=== PATIENT | male | born 1965 | race Caucasian/White ===

== ENCOUNTER 2016-06-03 10:15 | Observation (INO) ==
[2016-06-03] MEDS ORDERED: ASPIRIN CHEWABLE PO STA (10:30)
[2016-06-03] MEDS ORDERED: ZOFRAN 4 MG/2 ML IVP STA (10:55)
[2016-06-03] MEDS ORDERED: MORPHINE 4 MG/ML SYRINGE IVP STA (10:55)
[2016-06-03 11:04] LABS: BASOPHILS % (AUTO) 0.5 % (0.0-3.0); EOSINOPHILS # (AUTO) 0.1 K/ul (0.0-0.7); EOSINOPHILS % (AUTO) 2.3 % (0.0-7.0); HEMATOCRIT 46.3 % (42.0-52.0); HEMOGLOBIN 15.5 g/dl (14.0-18.0); IMMATURE GRANULOCYTE % (AUTO) 0.3 % (0.0-5.0); LYMPHOCYTES # (AUTO) 1.3 K/uL (0.60-3.4); LYMPHOCYTES % (AUTO) 20.5 (10.0-50.0); MEAN CORPUSCULAR HGB CONC 33.5 (31.8-35.4); MEAN CORPUSCULAR VOLUME 89.6 fl (80.0-94.0); MONOCYTES # (AUTO) 0.5 K/uL (0.4-2.0); MONOCYTES % (AUTO) 7.7 (0-10); NEUTROPHILS # (AUTO) 4.2 K/ul (2.0-6.9); NEUTROPHILS % (AUTO) 68.7; PLATELET COUNT 249 10^3/uL (140-440); RED BLOOD COUNT 5.17 10^6/ul (4.70-6.10); WHITE BLOOD COUNT 6.09 K/ul (4.2-10.2)
[2016-06-03 11:21] LABS: PARTIAL THROMBOPLASTIN TIME 23.9 SEC (23.9-40.0); PROTHROMBIN TIME 10.4 SEC (9.3-11.0)
[2016-06-03 11:25] LABS: BILIRUBIN,URINE Negative (NEGATIVE); KETONES,URINE Negative (NEGATIVE); LEUKOCYTE ESTERASE ,URINE Negative (NEGATIVE); NITRITE,URINE Negative (NEGATIVE); PH,URINE 6.5 (5-9); PROTEIN,URINE Negative (NEGATIVE); URINE, BLOOD Trace-intact (NEGATIVE)
[2016-06-03 11:28] LABS: ADD URINE MICROSCOPIC YES
[2016-06-03 11:51] LABS: ALANINE AMINOTRANSFERASE 42 U/L (12-78); ALBUMIN 4.2 g/dL (3.4-5.0); ALKALINE PHOSPHATASE 70 U/L (50-136); ANION GAP 11.7; ASPARTATE AMINO TRANSFERASE 24 U/L (15-37); BILIRUBIN,TOTAL 0.32 mg/dL (0.00-1.20); BLOOD UREA NITROGEN 18 mg/dL (7-18); CALCIUM 8.9 mg/dL (8.2-10.2); CARBON DIOXIDE 22 mmol/L (21-32); CHLORIDE 114 mmol/L (98-107); CREATINE KINASE 125 U/L; CREATININE 1.04 mg/dL (0.60-1.10); GLUCOSE 81 mg/dL (70-100); POTASSIUM 3.7 mmol/L (3.5-5.1); SODIUM 144 mmol/L (136-145)
[2016-06-03 11:52] LABS: CREATINE KINASE MB 2.6 ng/ml (0.0-3.6)
--- NOTE | 2016-06-03 11:54 | DI ---
EXAM: Chest one view, frontal view only. HISTORY: Chest pain. COMPARISON: 04/05/2014. FINDINGS: The heart size is normal. There is no pulmonary vascular congestion. The lungs are tiffani r. No pleural effusion or pneumothorax is seen. No acute osseous abnormality is identified. Since the prior study, there has been no significant interval change. IMPRESSION: No acute cardiopulmonary process.
--- NOTE | 2016-06-03 12:07 | ED.PDOC ---
General ED Provider: Dr. QUIN PATEL Chief Complaint: Chest Pain Stated Complaint: chest pain Time Seen by Physician: 10:20 (after an rgument he developed chest pain) Mode of Arrival: Walk-In Information Source: Patient Exam Limitations: No limitations Primary Care Provider: HERBERT READ Nursing and Triage Documentation Reviewed and Agree: Yes Cardiovascular Complaint Exam - Chest Pain Complaint/Exam Onset: Sudden Duration: 20 min Symptoms Are: Resolved Timing: Intermittent Initial Severity: Mild Current Severity: Mild Location: Reports: Midsternal Pain Radiates: Reports: None Character: Reports: Squeezing Aggravating: Reports: None Alleviating: Reports: None Associated Signs and Symptoms: Denies: Diaphoresis, Nausea, Vomiting, Fever, Palpitations, Cough, Hemoptysis, Back pain, Abdominal pain, Dizziness, Short of air, Calf pain, Calf swelling Related Surgical History: Reports: None History of Healthcare-Acquired Pneumonia: Reports: No AMI/ACS Risk Factors: Reports: Hypertension TAD Risk Factors: Reports: Hypertension Pulmonary Embolism Risk Factors: Reports: None Prior Care for this Complaint: No Recent Stress Test: No Recent Echo/LV Function: No JVD Present: No Subcutaneous Emphysema Present: No Diminshed Breath Sounds: No Reproducible Chest Wall Pain: No Bilateral Pulses Present: No Unequal Pulses Noted: No If Risk Factors for AMI/ACS Consider: EKG, Cardiac Enzymes Review of Systems - Review Of Systems Constitutional: Reports: No symptoms Eyes: Reports: No symptoms Ears, Nose, Mouth, Throat: Reports: No symptoms Respiratory: Reports: No symptoms Cardiac: Reports: Chest pain GI: Reports: No symptoms : Reports: No symptoms Musculoskeletal: Reports: No symptoms Skin: Reports: No symptoms Neurological: Reports: No symptoms Endocrine: Reports: No symptoms Hematologic/Lymphatic: Reports: No symptoms All Other Systems: Reviewed and Negative Past Medical History - Past Medical History Previously Healthy: No Endocrine: Reports: None Cardiovascular: Reports: Hypertension Respiratory: Reports: None Hematological: Reports: None Gastrointestinal: Reports: GERD Genitourinary: Reports: None Neuro/Psych: Reports: None Musculoskeletal: Reports: None Cancer: Reports: None - Surgical History General Surgical History: Reports: Unknown - Family History Family History: Reports: Unknown - Social History Smoking Status: Former smoker Hx Substance Use: No Alcohol Screening: None - Immunizations Tetanus Shot up to Date: No Physical Exam - Physical Exam Appearance: Well-appearing, No pain distress, Well-nourished Eyes: ARIES, EOMI, Conjunctiva clear ENT: Ears normal, Nose normal, Oropharynx normal Respiratory: Airway patent, Breath sounds clear, Breath sounds equal, Respirations nonlabored Cardiovascular: RRR, Pulses normal, No rub, No murmur GI/: Soft, Nontender, No masses, Bowel sounds normal, No Organomegaly Musculoskeletal: Normal strength, ROM intact, No edema, No calf tenderness Skin: Warm, Dry, Normal color Neurological: Sensation intact, Motor intact, Reflexes intact, Cranial nerves intact, Alert, Oriented Psychiatric: Affect appropriate, Mood appropriate 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 % (Auto) 7.7 Eos % (Auto) 2.3 Baso % (Auto) 0.5 Immature Gran # (Auto) 0.0 Neut # 4.2 Lymph # 1.3 [place] # 0.5 Eos # 0.1 Baso # 0.0 PT 10.4 INR 1.01 APTT 23.9 Sodium 144 Potassium 3.7 Chloride 114 H Carbon Dioxide 22 Anion Gap 11.7 BUN 18 Creatinine 1.04 Estimated GFR (MDRD) 75.00 BUN/Creatinine Ratio 17.30 Glucose 81 Calcium 8.9 Total Bilirubin 0.32 AST 24 ALT 42 Alkaline Phosphatase 70 Total Creatine Kinase 125 CK-MB (CK-2) 2.6 CK-MB (CK-2) % 2.12584 Troponin I < 0.0100 Total Protein 7.0 Albumin 4.2 Globulin 2.8 Albumin/Globulin Ratio 1.50 Urine Color Yellow Urine Clarity Clear Urine pH 6.5 Ur Specific [place] <=1.005 Urine Protein Negative Urine Glucose (UA) Negative Urine Ketones Negative Urine Blood Trace-intact Urine Nitrite Negative Urine Bilirubin Negative Urine Urobilinogen 0.2 Ur Leukocyte Esterase Negative Urine Microscopic RBC 0-2 Ur Squamous Epith Cells Not present Orders Category Date Time Status EKG-(ED ONLY) Stat CARDIO 06/03/16 10:30 Completed ED IV/MEDIPORT/POWERPORT .ONCE EMERGENCY 06/03/16 10:29 Active CBC W/ AUTO DIFF Stat LAB 06/03/16 10:37 Completed COMPREHENSIVE METABOLIC PANEL Stat LAB 06/03/16 10:37 Completed CREATINE KINASE Stat LAB 06/03/16 10:37 Completed PARTIAL THROMBOPLASTIN TIME Stat LAB 06/03/16 10:37 Completed PT WITH INR Stat LAB 06/03/16 10:37 Completed TROPONIN I Stat LAB 06/03/16 10:37 Completed URINALYSIS C & S IF INDICATED Stat LAB 06/03/16 11:20 Completed 0.9 % Sodium Chloride [Saline Flush] MEDS 06/03/16 10:30 Active 1 syr IVF PRN PRN Aspirin [Aspirin Chewable] MEDS 06/03/16 10:30 Discontinued 324 mg PO ONCE STA Morphine Sulfate [Morphine 4 mg/ml Syringe] MEDS 06/03/16 10:55 Discontinued 2 mg IVP ONCE STA Ondansetron HCl/Pf [Zofran 4 mg/2 ml] MEDS 06/03/16 10:55 Discontinued 4 mg IVP ONCE STA CHEST, 1V AP ONLY Stat RADS 06/03/16 10:29 Completed Medications Generic Name Dose Route Start Last Admin Trade Name Freq PRN Reason Stop Dose Admin Sodium Chloride 1 syr 06/03/16 10:30 06/03/16 10:45 Saline Flush IVF 1 syr PRN PRN Administration To flush IV Discontinued Medications Generic Name Dose Route Start Last Admin Trade Name Freq PRN Reason Stop Dose Admin Aspirin 324 mg 06/03/16 10:30 06/03/16 10:43 Aspirin Chewable PO 06/03/16 10:31 324 mg ONCE STA Administration Morphine Sulfate 2 mg 06/03/16 10:55 06/03/16 11:09 Morphine 4 Mg/Ml Syringe IVP 06/03/16 10:56 2 mg ONCE STA Administration Ondansetron HCl 4 mg 06/03/16 10:55 06/03/16 11:07 Zofran 4 Mg/2 Ml IVP 06/03/16 10:56 4 mg ONCE STA Administration Vital Signs: Temp Pulse Resp BP Pulse Ox 06/03/16 10:16 97.8 F 80 16 153/103 H 99 MARGIE Risk Score MARGIE Risk Score: Risk Score Odds of by 30D 0 0.1 (0.1-0.2) 1 0.3 (0.2-0.3) 2 0.4 (0.3-0.5) 3 0.7 (0.6-0.9) 4 1.2 (1.0-1.5) 5 2.2 (1.9-2.6) 6 3.0 (2.5-3.6) 7 4.8 (3.8-6.1) Departure - Departure Time of Disposition: 12:09 Disposition: HOME SELF-CARE Discharge Problem: Chest pain Instructions: Angina (ED) Condition: Good Pt referred to PMD for follow-up: Yes (admitt) Allergies/Adverse Reactions: Allergies No Known Allergies Allergy (Verified 06/03/16 10:27) Home Medications: Ambulatory Orders Amlodipine Besylate/Benazepril [Lotrel 10-20 mg Capsule] 1 each PO DAILY Atorvastatin Calcium [Lipitor] 40 mg PO DAILY 04/05/14 B12/Levomefolate Calcium/B-6 [Eaweixprow-Urjzfoo-Kmvbqhra Tb] 1 each PO DAILY Diclofenac Epolamine [Flector] 1 each TD DIRECTED PRN 04/05/14 Guanfacine HCl [Tenex] 2 mg PO BID 04/05/14 Hydrocodone/Acetaminophen [Lortab 5-325 mg Tablet] 1 each PO BID PRN 04/05/14 Ramelteon [Rozerem] 8 mg PO BEDTIME 04/05/14 Testosterone [Axiron] 2 sprays TD DIRECTED 04/05/14 Tizanidine HCl [Zanaflex] 12 mg PO BEDTIME 04/05/14 Topiramate [Topamax] 50 mg PO TID 04/05/14 Zolpidem Tartrate [Ambien] 10 mg PO DIRECTED PRN 04/05/14 Celecoxib [Celebrex] 200 mg PO BID PRN 04/06/14 Esomeprazole Magnesium [Nexium] 40 mg PO DAILY 05/16/14 Disposition Discussed With: Patient
[2016-06-03] MEDS ORDERED: TORADOL IVP STA ×2 (12:37→21:05)
[2016-06-03] MEDS ORDERED: PROTONIX IV IVP STA (12:38)
[2016-06-03] MEDS ORDERED: DECADRON 4 MG/ML SDV IM STA (12:39)
[2016-06-03 13:41] VITALS: BMI 35.9
[2016-06-03] MEDS: SODIUM CHLORIDE 1,000 ML IV SCH (13:43)
--- NOTE | 2016-06-03 14:54 | US ---
Examination: Alatorre-scale and color Doppler ultrasonographic evaluation of the bilateral carotid candida soraya. Comparison: None available. Reason for study: Lightheadedness. FINDINGS: Right side: There is a small amount of heterogeneous plaque seen in the common carotid artery. The right common carotid artery measures 100 / 20 cm/sec. The right external carotid artery measures 60 / 20 cm/sec. The right internal carotid artery peak systolic velocity measures 80 cm/sec. The right internal carotid artery/CCA PSV ratio is 0.8. The right internal carotid artery end-diastolic velocity measures 20 cm/sec. There is normal antegrade right vertebral artery flow. Left side: There is a small amount of heterogeneous plaque seen in the common carotid and within the bulb of th e internal left carotid artery. The left common carotid artery measures 90 / 30 cm/sec. The left external carotid artery measures 90 / 20 cm/sec. The left internal carotid artery peak systolic velocity measures 60 cm/sec. The left internal carotid artery/CCA PSV ratio measures 0.7. The left internal carotid artery end-diastolic velocity measures 20 cm/sec. There is normal antegrade left vertebral artery flow. Impression: There is no evidence of ultrasonographically significant stenosis seen in either of the internal carotid arteries.
[2016-06-03] MEDS ORDERED: NITROSTAT SL PRN (14:55)
[2016-06-03] MEDS ORDERED: NON-FORMULARY MEDICATION (Celecoxib [Celebrex] 200 MG) PO PRN ×22 (15:11)
[2016-06-03] MEDS ORDERED: DICLOFENAC EPOLAMINE TD PRN (15:11)
[2016-06-03] MEDS ORDERED: GI COCKTAIL PO STA (15:15)
[2016-06-03] MEDS ORDERED: TESTOSTERONE TD SCH (15:15)
[2016-06-03] MEDS: LOVENOX SUBCUT SCH ×2 (15:35→21:03)
[2016-06-03 18:55] LABS: CREATINE KINASE 103 U/L
[2016-06-03] MEDS ORDERED: GUANFACINE HCL 4 MG PO SCH (21:00)
[2016-06-03] MEDS ORDERED: NON-FORMULARY MEDICATION (Topiramate [Topamax] 100 MG) PO SCH (21:00)
[2016-06-03] MEDS: ZANAFLEX PO SCH (21:04)
[2016-06-03] MEDS: NORCO 5-325 PO SCH (21:04)
[2016-06-03] MEDS: TOPAMAX PO SCH (21:04)
[2016-06-03] MEDS ORDERED: XANAX PO STA (21:05)
[2016-06-04 02:12] LABS: BASOPHILS % (AUTO) 0.1 % (0.0-3.0); EOSINOPHILS % (AUTO) 0.1 % (0.0-7.0); HEMOGLOBIN 14.8 g/dl (14.0-18.0); IMMATURE GRANULOCYTE % (AUTO) 0.2 % (0.0-5.0); LYMPHOCYTES % (AUTO) 10.4 (10.0-50.0); MEAN CORPUSCULAR HEMOGLOBIN 30.6 pg (27.0-31.0); MEAN CORPUSCULAR HGB CONC 34.4 (31.8-35.4); MEAN CORPUSCULAR VOLUME 88.8 fl (80.0-94.0); MONOCYTES # (AUTO) 0.5 K/uL (0.4-2.0); MONOCYTES % (AUTO) 4.9 (0-10); NEUTROPHILS # (AUTO) 8.1 K/ul (2.0-6.9); NEUTROPHILS % (AUTO) 84.3; PLATELET COUNT 233 10^3/uL (140-440); RED BLOOD COUNT 4.84 10^6/ul (4.70-6.10); WHITE BLOOD COUNT 9.56 K/ul (4.2-10.2)
[2016-06-04 02:32] LABS: ALBUMIN 3.6 g/dL (3.4-5.0); ALBUMIN/GLOBULIN RATIO 1.5; ANION GAP 8.1; BILIRUBIN,TOTAL 0.39 mg/dL (0.00-1.20); BUN/CREATININE RATIO 18.55; CALCIUM 8.6 mg/dL (8.2-10.2); CREATININE 0.97 mg/dL (0.60-1.10); POTASSIUM 4.1 mmol/L (3.5-5.1)
[2016-06-04 02:38] LABS: CREATINE KINASE 84 U/L
[2016-06-04] MEDS ORDERED: PROTONIX PO SCH (06:30)
[2016-06-04] MEDS: SODIUM CHLORIDE 1,000 ML IV SCH (07:19)
[2016-06-04] MEDS ORDERED: NON-FORMULARY MEDICATION (Esomeprazole Magnesium [Nexium] 40 MG) PO SCH ×22 (09:00)
[2016-06-04] MEDS ORDERED: NORVASC PO SCH (09:00)
[2016-06-04] MEDS ORDERED: AMLODIPINE BESYLATE PO SCH (09:00)
[2016-06-04] MEDS ORDERED: BENAZEPRIL PO SCH (09:00)
[2016-06-04] MEDS ORDERED: LIPITOR PO SCH (09:00)
[2016-06-04] MEDS ORDERED: [UNRECOGNIZED DRUG - OTHER] PO SCH (09:00)
[2016-06-04] MEDS ORDERED: LOTENSIN PO SCH (09:00)
[2016-06-04] MEDS ORDERED: NON-FORMULARY MEDICATION (Atorvastatin Calcium [Lipitor] 40 MG) PO SCH ×22 (09:00)
[2016-06-04] MEDS: TOPAMAX PO SCH (09:39)
[2016-06-04] MEDS: ZANAFLEX PO SCH (09:40)
[2016-06-04] MEDS: NORCO 5-325 PO SCH (09:45)
[2016-06-04] MEDS: LOVENOX SUBCUT SCH (09:45)
[2016-06-04 10:28] VITALS: BP 147/86; TEMP 97.5
--- NOTE | 2016-06-04 10:32 | STRESSECHO ---
Date of Test: 06/04/16 Reason for Exam: CHEST PAIN, HYPERTENSION Ordering Physician: HERBERT READ Current Medications: NEXIUM, CELEBREX, LIPITOR, LOTREL, LORTAB, TENEX, FLECTOR, ZANAFLEX, AXIRON, TOPAMAX Physical Findings: S1, S2, NO S3 Resting EKG: SINUS RHYTHM/NO ACUTE CHANGES Target Heart Rate: 142/168 STAGE MPH/GRADE HEART RATE BPM BLOOD PRESSURE mmhg RHYTHM S-T SEGMENT +/- UP DOWN SYMPTOMS,COMMENTS At Rest 75 148/90 SR X NONE 1 1.7/10% 110 160/88 SR X NONE 2 2.5/12% 3 3.4/14% 4 4.2/16% 5 5.0/18% Immediately after 141 168/80 SR X FATIGUE Durations of Exercise: 8:18 Maximum Heart Rate Reached: 146 Reason for Termination: FATIGUE 5 MIN POST EXERCISE: 80 HR, 152/80 MMHG BP, SINUS RHYTHM, +/- INTERPRETATION: 99% OXYGEN SATURATION WITH EXERCISE ON ROOM AIR METS 10.1 1. NO EVIDENCE OF ISCHEMIA BY ST-T WAVE 2. NO CHEST PAIN OR CHEST DISCOMFORT 3. BLOOD PRESSURE RESPONSE: BORDERLINE HYPERTENSION RESTING AND DURING EXERCISE NORMAL LEFT VENTRICULAR CONTRACTILITY--RESTING AND POST EXERCISE MTDD
--- NOTE | 2016-06-04 10:37 | ECHOSTRESS ---
Date of Exam: 06/04/16 Ordering Physician: HERBERT READ Reason for Echo: CHEST PAIN, HYPERTENSION, STRESS TEST--NO ISCHEMIA M-Mode Normal Adult Results LV Dimensions Normal Adult Results AoV Opening excursions >1.6 LVEDD-base- 3.5-5.8 Ao root dimensions 2.0-3.7 LVESD-base- 3.1-4.6 L. Atrium dimensions 1.9-3.8 Post. Wall thickness 0.8-1.1 IV septum (thickness) 0.7-1.2 Post. Wall excursion 0.72-1.3 Septal motion Systolic motion R. Ventricular cavity 1.5-2.0 LVEF 60% Paradoxical septal wall motion 2-D: NORMAL LEFT VENTRICULAR CONTRACTILITY--RESTING AND POST EXERCISE M-MODE: MV: AV: TV: PV: CHAMBER SIZE: WALL MOTION: NORMAL LEFT VENTRICULAR CONTRACTILITY--RESTING AND POST EXERCISE PERICARDIUM: INTERPRETATION: 1. NORMAL LEFT VENTRICULAR CONTRACTILITY--RESTING AND POST EXERCISE MTDD
--- NOTE | 2016-06-04 11:09 | PCM.PROG ---
Attending Provider: ATTENDING PROVIDER: Dr. HERBERT READ DATE OF SERVICE: 06/04/16 SUBJECTIVE: This 50 year old WHITE/ M was hospitalized 06/03/16. The patient is hospitalized with chest pain. The patient doesn't have any chest pain - he has mild soreness in the left pectoral muscle. No shortness of breath. No PND, no orthopnea. REVIEW OF SYSTEMS: CONSTITUTIONAL: No night sweats. No fatigue, malaise, lethargy. No fever or chills. HEENT: Eyes: No visual changes. No eye pain. No eye discharge. ENT: No runny nose. No epistaxis. No sinus pain. No odynophagia. No congestion. RESPIRATORY: No cough, no congestion. No hemoptysis. CARDIOVASCULAR: No angina symptoms. No CHF symptoms. No atypical chest pain for CAD. No palpitations. No shortness of breath. GASTROINTESTINAL: No abdominal pain. No nausea or vomiting. No diarrhea or constipation. No hematemesis. No hematochezia. GENITOURINARY: No urgency. No frequency. No dysuria. No hematuria. No obstructive symptoms. No discharge. No pain. No significant abnormal bleeding. MUSCULOSKELETAL: No musculoskeletal pain; no joint swelling. NEUROLOGICAL: Awake, alert, oriented to time, place and person. No headache. No neck pain. No syncope. No seizures. No dizziness. PSYCHIATRIC: Not anxious. No depression. No suicidal thoughts. No homicidal thoughts. SKIN: No rash. No lesions. No wounds. ENDOCRINE: No unexplained weight loss. No weight gain. HEMATOLOGIC/LYMPHATIC: No anemia. No purpura. No petechiae. No prolonged or excessive bleeding. No palpable lymph nodes. PHYSICAL EXAMINATION: GENERAL: The patient is awake, alert and oriented, lying/sitting in bed in no distress. VITAL SIGNS: Temperature 97.0 F, Pulse 78, Respiratory Rate 18, BP 149/89, Pulse Ox 99% HEENT: Head normocephalic, atraumatic. Eyes: Extraocular muscles are intact. Pupils are equal, round and reactive to light and accommodation. Ears: No lesions. Nose appeared normal. Throat: No exudate or erythema. NECK: Supple. No JVD, no carotid bruit. No lymphadenopathy or thyromegaly. LUNGS: Clear to auscultation. Percussion note normal. Chest symmetrical. HEART: S1, S2, no S3. No murmurs. No cyanosis or clubbing. No ascites. Pulses: Dorsalis pedis and posterior tibial pulses +1 to +2 both sides. ABDOMEN: Soft. Non-tender. Bowel sounds active. No CVA tenderness. No mass felt. EXTREMITIES: No edema. Full range of motion of all extremities, equal. NEUROLOGIC: No focal deficit. Cranial nerves II through XII are grossly intact. No headache, no double vision or headache. SKIN: Not dry. Intact. Turgor-normal. LYMPHATIC: No palpable lymph nodes/no lymphedema. MUSCULOSKELETAL: Normal joints with no swelling. Muscle tone is normal. LAB REVIEW: 06/04/16 02:10 06/04/16 02:10 06/04/16 02:10: WBC 9.56, RBC 4.84, Hgb 14.8, Hct 43.0, MCV 88.8, MCH 30.6, MCHC 34.4, RDW Coeff of Darren 13.1, Plt Count 233, Immature Gran % (Auto) 0.2, Neut % (Auto) 84.3, Lymph % (Auto) 10.4, Webb % (Auto) 4.9, Eos % (Auto) 0.1, Baso % (Auto) 0.1, Immature Gran # (Auto) 0.0, Neut # 8.1 H, Lymph # 1.0, Webb # 0.5, Eos # 0.0, Baso # 0.0, Sodium 142, Potassium 4.1, Chloride 117 H, Carbon Dioxide 21, Anion Gap 8.1, BUN 18, Creatinine 0.97, Estimated GFR (MDRD) 81.00, BUN/Creatinine Ratio 18.55, Glucose 111 H, Calcium 8.6, Total Bilirubin 0.39, AST 20, ALT 40, Alkaline Phosphatase 60, Total Creatine Kinase 84, Troponin I < 0.0100, Total Protein 6.0 L, Albumin 3.6, Globulin 2.4, Albumin/Globulin Ratio 1.50 06/03/16 18:25: Total Creatine Kinase 103, Troponin I < 0.0100 ASSESSMENT: 1. Chest pain, seems noncardiac 2. Hypertension 3. Dyslipidemia 4. Hyperglycemia 5. Metabolic syndrome 6. Hypogonadism 7. Severe DJD, generalized involving knee and lower back, C-spine PLAN: 1. The patient had a stress echocardiogram done, which was negative for ischemia at a high exercise level; borderline aortic root enlargement, normal left ventricular contractility. 2. BMI is 36; advised to lose weight. Counseling for weight loss done; discussed stress management. 3. DASH diet discussed. Coronary artery disease and its risk factors discussed. 4. The patient may return to work on Thursday. 5. Will discharge home today. 6. Benazepril/Lotrel 10 mg - is going to be 40 mg now, one at bedtime. Plan and coordination of the patient's care discussed in the presence of Park Recreation Manager and nurse. CONDITION: Stable SCRIBED BY: ESPINOZA PONCE Warehouse Record Clerk scribed while in presence of service performed by Dr. HERBERT READ on 06/04/16 ([id number])
--- NOTE | 2016-06-04 14:56 | HP ---
DATE OF SERVICE: 06/03/16 REASON FOR HOSPITALIZATION: Chest pain HISTORY OF PRESENT ILLNESS: The patient is a 50 year old white male came to the emergency room with his because of having chest pain. The took him to the emergency room. The patient was working and got into an argument later on and started mostly over the pectoral muscle discomfort going to the left shoulder and left side of the neck, felt foggy. He denies of any sweating, no shortness of breath with it and the pain subsided but he ended up calling his he took him home and then was brought to the emergency room where he also started having chest pain again. The patient was initially given Dilaudid which helped him. The patient's EKG sinus rhythm, no acute changes and all the cardiac markers are negative. I ended seeing the patient in the emergency room. His was present at that time. REVIEW OF SYSTEMS: CONSTITUTIONAL: No night sweats. No fatigue, malaise, lethargy. No fever or chills. HEENT: Eyes: No visual changes. No eye pain. No eye discharge. ENT: No runny nose. No epistaxis. No sinus pain. No sore throat. No odynophagia. No ear pain. No congestion. RESPIRATORY: No cough, no congestion. No hemoptysis. CARDIOVASCULAR: No angina symptoms. No CHF symptoms. Chest tightness. Chest discomfort. . No palpitations. No shortness of breath. Pectoral going to the left shoulder off and on for the past several hours. No exertional chest discomfort. GASTROINTESTINAL: No abdominal pain. No nausea or vomiting. No diarrhea or constipation. No hematemesis. No hematochezia. GENITOURINARY: No urgency. No frequency. No dysuria. No hematuria. No obstructive symptoms. No discharge. No pain. No significant abnormal bleeding. MUSCULOSKELETAL: No musculoskeletal pain. No joint swelling. No arthritis. NEUROLOGICAL: No headache. No neck pain. No syncope. No seizures. No dizziness. PSYCHIATRIC: Not anxious. No depression. No suicidal thoughts. No homicidal thoughts. SKIN: No rash. No lesions. No wounds. ENDOCRINE: No unexplained weight loss. No weight gain. HEMATOLOGIC/LYMPHATIC: No anemia. No purpura. No petechiae. No prolonged or excessive bleeding. No palpable lymph nodes. PERSONAL/FAMILY/SOCIAL HISTORY: The patient is and lives with the . He works at [id number]. Non-Smoker, no alcohol abuse. PAST MEDICAL/SURGICAL PROBLEMS: Hypertension Severe DJD of L spine Cervical radiculopathy Hypertension LVH Gastroesophageal reflux disease Dyslipidemia SIH Osteoarthritis Right hip surgery Right meniscus repair Hypogonadism Hyperglycemia BMI 34 MEDICATIONS: Lipitor 40mg PO daily [place] 5mg PO three times a day Nexium 40mg PO twice a day Lotrel 10/20mg one a day Ambien 10mg PO at HS Tenex 4mg PO HS Topamax 25mg two in the morning and two at night Axiron two puff every day Zanaflex 4mg PO three times a day Flector patch 0.3% PRN ALLERGIES: Codeine PHYSICAL EXAMINATION: GENERAL: The patient is oriented to time, place and person. VITAL SIGNS: Temperature 98, pulse 80, respiratory rate 15 and blood pressure 138/84. HEENT: Head normocephalic, atraumatic. Eyes: Extraocular muscles are intact. Pupils are equal, round and reactive to light and accommodation. Ears: No lesions. Nose appeared normal. Throat: No exudate or erythema. NECK: Supple. No JVD, no carotid bruit. No lymphadenopathy or thyromegaly. LUNGS: Clear to auscultation. Percussion note normal. Chest symmetrical. HEART: S1, S2, no S3. No murmurs. No cyanosis or clubbing. No ascites. Pulses: Dorsalis pedis and posterior tibial pulses +1 to +2 both sides. ABDOMEN: Soft. Nontender. Bowel sounds active. No CVA tenderness. No mass felt. EXTREMITIES: No edema. Full range of motion of all extremities, equal. NEUROLOGIC: No focal deficit. Cranial nerves II through XII are grossly intact. No headache, no double vision or headache. SKIN: Not dry. Intact. Turgor - normal. LYMPHATIC: No palpable lymph nodes/no lymphedema. MUSCULOSKELETAL: Normal joints with no swelling. Muscle tone is normal. LABS: Potassium 3.7, CK-MB negative, Troponin normal, BUN and creatinine normal, liver profile negative. INR normal, hgb 15.5, hct 46, WBC 6,000 normal differential and UA normal. EKG sinus rhythm, no acute changes. ASSESSMENT: 1. Chest pain, seems to be prevocal could be coronary insufficient so far no evidence of it 2. Hypertension 3. Dyslipidemia 4. LVH 5. Severe generalized Osteoarthritis with DJD of L Spine SI joint 6. Right hip surgery 7. Right meniscus repair 8. Hypogonadism 9. Metabolic syndrome 10. Hyperglycemia 11. BMI 34 PLAN: 1. 1 cc Decadron 2. 30mg Toradol IV 3. Protonix 40mg twice a day 4. Continue the rest of the home medications as before 5. In the morning do echocardiogram and stress echo 6. Routine telemetry orders with oximetry telemetry 7. Nitroglycerin PRN CONDITION: Stable. TIME SPENT: More than 70 minutes. MTDD
--- NOTE | 2016-06-05 08:19 | ECHO2D ---
Date of Exam: 06/04/16 Ordering Physician: HERBERT READ Reason for Echo: CHEST PAIN, HTN M-Mode Normal Adult Results LV Dimensions Normal Adult Results AoV Opening excursions >1.6 >1.6 LVEDD-base- 3.5-5.8 4.3 Ao root dimensions 2.0-3.7 3.8 LVESD-base- 3.1-4.6 L. Atrium dimensions 1.9-3.8 3.7 Post. Wall thickness 0.8-1.1 1.2 IV septum (thickness) 0.7-1.2 1.3 Post. Wall excursion 0.72-1.3 NORMAL Septal motion NORMAL Systolic motion R. Ventricular cavity 1.5-2.0 NORMAL LVEF 60% 61% Paradoxical septal wall motion NORMAL 2-D : 2-D M Mode Echocardiogram was performed using apical four chamber and left parasternal long and short axis views. Mitral, tricuspid and aortic valves appear to be normal. Contractility of the left ventricle seems to be normal, so is the cavity size. Left atrial cavity size and aortic root appear to be normal. There is no pericardial effusion. There is no thrombus noted in the left ventricular or left aortic cavity. No mitral valve prolapse noted. M-MODE: MV: NORMAL AV: NORMAL TV: NORMAL PV: CHAMBER SIZE: NORMAL WALL MOTION: NORMAL PERICARDIUM: NORMAL INTERPRETATION: 1. MILD LEFT VENTRICULAR HYPERTROPHY 2. NORMAL LEFT VENTRICULAR CONTRACTILITY 3. NORMAL VALVES MTDD
--- NOTE | 2016-06-09 14:52 | DS ---
DATE OF SERVICE: 06/04/16 FINAL DIAGNOSIS: 1. CHEST PAIN, ETIOLOGY NONCARDIAC LIKELY MUSCULOSKELETAL 2. HYPERTENSION 3. DYSLIPIDEMIA 4. GENERALIZED SEVERE OSTEOARTHRITIS INVOLVING KNEES, LOWER BACK, C-SPINE 5. GASTROESOPHAGEAL REFLUX DISEASE 6. HYPOGONADISM 7. HYPERTENSION DISCHARGE INSTRUCTIONS: Followup appointment: Instructed to come back on Thursday. No work until released. MEDICATIONS AT DISCHARGE: Amlodipine Otherwise continue the same medicine as before which is: Atorvastatin Diclofenac Flector Patch Continue Hydrocodone/Acetaminophen 5/325 t.i.d. Tizanidine (Zanaflex) Axiron Topamax Nexium MEDICATION CHANGES: Advised to discontinue Celebrex Benazepril (Lotrel) increase to 10/40 from 12/26 DIET INSTRUCTIONS: DASH diet (information provided) ACTIVITY: Gradually resume as tolerated. May return to work on Thursday. SMOKING: N/A DISEASE SPECIFIC EDUCATION: Weight loss Medications Stress reduction Diet - DASH HOSPITAL COURSE: 50-year-old white male hospitalized with chest pain, which was equivocal for coronary insufficiency as he had tightness going to the left shoulder and left neck but the patient's pain was more localized, nonexertional and there were no associated symptoms of shortness of breath or sweating. The patient underwent telemetry, cardiac markers which were negative. EKGs serial were negative for any acute myocardial event. The patient's stress echo was negative at higher exercise level. Echo showed normal LV contractility with LVH. The patient's condition at time of discharge was stable. He was explained about coronary artery disease and risk factors, how to modify them. Advised to lose weight. His BMI is 36, should be 23 plus/minus two. Weight loss diet discussed with him. Also stress management discussed. He is going through a lot of stress at work. LAB TESTS: Hemoglobin 14.8, hematocrit 43, WBC 9,500, normal differential. Creatinine 0.9, BUN 18, potassium 4.1. CONDITION AT TIME OF DISCHARGE: Stable TIME SPENT: More than 60 minutes. MTDD
== END 2016-06-04 13:15 | disposition home or self-care (01) ==
LOC: ED 10:15 → INTOOBSV 12:15 → MEDSURG A 12:15 → SCU 12:38
PROVIDERS: ADMIT Internal Medicine; ATTEND Internal Medicine
DX: R07.89 Other chest pain (principal); I51.7 Cardiomegaly; I10 Essential (primary) hypertension; E78.5 Hyperlipidemia, unspecified; E66.9 Obesity, unspecified; E88.81 Metabolic syndrome and other insulin resistance; K21.9 Gastro-esophageal reflux disease without esophagitis; R73.9 Hyperglycemia, unspecified; E29.1 Testicular hypofunction; M17.9 Osteoarthritis of knee, unspecified; M47.892 Other spondylosis, cervical region; Z79.899 Other long term (current) drug therapy; Z86.79 Personal history of other diseases of the circulatory system; Z68.36 Body mass index [BMI] 36.0-36.9, adult; Z56.6 Other physical and mental strain related to work
CPT/HCPCS: 36415; 80053; 81001; 82550; 82553; 84484; 85025; 85610; 85730; 87081; 93005; 93010; 96361; 96372; 96374; 96375; 96376; 99284

== ENCOUNTER 2017-12-15 06:39 | Outpatient (CLI) ==
--- NOTE | 2017-12-15 13:56 | ECHO2D ---
Date of Exam: 12/15/17 Ordering Physician: DR. HERBERT READ Room #: OP Reason for Echo: SOB, LVH, SURGICAL CLEARANCE M-Mode Normal Adult Results LV Dimensions Normal Adult Results AoV Opening excursions >1.6 >1.6 LVEDD-base- 3.5-5.8 4.6 Ao root dimensions 2.0-3.7 4.0 LVESD-base- 3.1-4.6 L. Atrium dimensions 1.9-3.8 4.4 Post. Wall thickness 0.8-1.1 1.5 IV septum (thickness) 0.7-1.2 1.5 Post. Wall excursion 0.72-1.3 NORMAL Septal motion NORMAL Systolic motion R. Ventricular cavity 1.5-2.0 NORMAL LVEF 60% 64% Paradoxical septal wall motion NORMAL 2-D : 2-D M Mode Echocardiogram was performed using apical four chamber and left parasternal long and short axis views. Mitral, tricuspid and aortic valves appear to be normal. Contractility of the left ventricle seems to be normal, so is the cavity size. Enlarged Left atrial cavity size. Aortic root appears to be normal. There is no pericardial effusion. There is no thrombus noted in the left ventricular or left aortic cavity. No mitral valve prolapse noted. M-MODE: MV: NORMAL AV: NORMAL TV: NORMAL PV: CHAMBER SIZE: ENLARGED LEFT ATRIAL CAVITY WALL MOTION: NORMAL PERICARDIUM: NORMAL INTERPRETATION: 1. MODERATE LEFT VENTRICULAR HYPERTROPHY WITH ENLARGED LEFT ATRIAL CAVITY 2. NORMAL VALVES 3. NORMAL LEFT VENTRICULAR CONTRACTILITY MTDD
== END 2017-12-15 06:40 | disposition home or self-care (01) ==
LOC: CAR 06:39
PROVIDERS: ATTEND Internal Medicine
DX: R06.02 Shortness of breath (principal); Z01.810 Encounter for preprocedural cardiovascular examination; I51.7 Cardiomegaly

== ENCOUNTER 2017-12-16 06:45 | Outpatient (CLI) ==
[2017-12-16] MEDS ORDERED: ATROPINE SULFATE PFS ONE (07:03)
--- NOTE | 2017-12-17 08:48 | STRESSECHO ---
Date of Test: 12/16/17 Ordering Physician: DR. HERBERT READ Occupation: SECURITY SYSTEM ADMINISTRATOR Reason for Exam: SOB, LVH, SURGICAL CLEARANCE Smoking History: NONE Height: 68 " Weight: 245 LBS Current Medications: DUEXIS, LIPITOR, NEXIUM, LOTREL, TENEX, AXIRON, FLEXOR PATCH, ZYAC, PERCOCET, LYRICA, FLEXERIL, DULOXETINE Target Heart Rate: 141/ 166 Resting EKG: SINUS RHYTHM/ NO ACUTE CHANGES S-T SEGMENT STAGE MPH/GRADE HEART RATE BPM BLOOD PRESSURE MMHG RHYTHM +/- ELEVATION DEPRESSION SYMPTOMS AT REST 80 122/78 SR X NONE 1 1.7/10% 108 146/80 SR X NONE 2 2.5/12% 125 150/72 SR X NONE 3 3.4/14% 4 4.2/16% 5 5.0/18% Immediately After 135 150/72 SR X KNEE PAIN Minutes Post Exercise 5:00 85 136/72 SR X NONE Minutes Post Exercise DURATION OF EXERCISE: 7:33 MAXIMUM HEART RATE REACHED: 135 BPM REASON FOR TERMINATION: KNEE PAIN 99% OXYGEN SATURATION WITH EXERCISE ON ROOM AIR METS 10.1 INTERPRETATION: 1. NO EVIDENCE OF ISCHEMIA BY ST-T WAVE CHANGES 2. NO CHEST PAIN OR CHEST DISCOMFORT 3. BLOOD PRESSURE RESPONSE: NORMAL AT REST AND WITH EXERCISE 4. NO ARRHYTHMIAS NORMAL LEFT VENTRICULAR CONTRACTILITY RESTING AND POST EXERCISE MTDD
--- NOTE | 2017-12-17 08:51 | ECHOSTRESS ---
Date of Exam: 12/16/17 Ordering Physician: DR. HERBERT READ Reason for Echo: SOB, LVH, SURGICAL CLEARANCE, STRESS TEST--NO ISCHEMIA M-Mode Normal Adult Results LV Dimensions Normal Adult Results AoV Opening excursions >1.6 LVEDD-base- 3.5-5.8 Ao root dimensions 2.0-3.7 LVESD-base- 3.1-4.6 L. Atrium dimensions 1.9-3.8 Post. Wall thickness 0.8-1.1 IV septum (thickness) 0.7-1.2 Post. Wall excursion 0.72-1.3 Septal motion Systolic motion R. Ventricular cavity 1.5-2.0 LVEF 60% Paradoxical septal wall motion 2-D: NORMAL LEFT VENTRICULAR CONTRACTILITY--RESTING AND POST EXERCISE M-MODE: MV: AV: TV: PV: CHAMBER SIZE: WALL MOTION: NORMAL LEFT VENTRICULAR CONTRACTILITY--RESTING AND POST EXERCISE PERICARDIUM: INTERPRETATION: 1. NORMAL LEFT VENTRICULAR CONTRACTILITY--RESTING AND POST EXERCISE MTDD
== END 2017-12-16 06:46 | disposition home or self-care (01) ==
LOC: CAR 06:45
PROVIDERS: ATTEND Internal Medicine
DX: R06.02 Shortness of breath (principal); I51.7 Cardiomegaly; Z01.810 Encounter for preprocedural cardiovascular examination

== ENCOUNTER 2018-04-15 14:46 | Outpatient (CLI) | END 2018-04-15 14:47 | disposition home or self-care (01) | LOC: CAR 14:46 | PROVIDERS: ATTEND Psychiatry & Neurology Sleep Medicine | DX: G47.33 Obstructive sleep apnea (adult) (pediatric) (principal) | CPT/HCPCS: 95810 ==

== ENCOUNTER 2018-05-13 14:19 | Outpatient (CLI) | END 2018-05-13 14:20 | disposition home or self-care (01) | LOC: CAR 14:19 | PROVIDERS: ATTEND Psychiatry & Neurology Sleep Medicine | DX: G47.33 Obstructive sleep apnea (adult) (pediatric) (principal) | CPT/HCPCS: 95811 ==